=== PATIENT | female | born 1980 | race American Indian/Alaskan Native ===

== ENCOUNTER 2017-09-10 10:30 | Emergency (ER) | payer MEDICAID, MEDICARE, OTHER ==
[2017-09-10 10:33] VITALS: BMI 40.6
--- NOTE | 2017-09-10 11:17 | ED PDOC ---
Arrival/HPI - General Chief Complaint: Psychiatric Evaluation Time Seen by Provider: 09/10/17 10:46 Historian: EMS EM Caveat: Psychotic - History of Present Illness Narrative History of Present Illness (Text): 09/10/17 11:13 37 year old female, whose past medical history includes Anxiety, Bipolar Disorder, Depression, Personality Disorder, and Schizophrenia, presents to the emergency department by EMS found by [employer] acting bizarre at home. Patient is screaming "I don't know my name" repeatedly. Patient is not answering any questions. HPI and ROS limited due to patient being uncooperative and current mental state. Past Medical History - Provider Review Nursing Documentation Reviewed: Yes - Infectious Disease Hx of Infectious Diseases: None - Tetanus Immunization Tetanus Immunization: Unknown - Cardiac Hx Hypertension: No - Pulmonary Hx Tuberculosis: No - Neurological Hx Seizures: No - HEENT Hx HEENT Disorder: No Hx Cataracts: No Hx Deafness: No Hx Difficulty Chewing: No Hx Epistaxis: No Hx Glaucoma: No Hx Macular Degeneration: No - Renal Hx Renal Disorder: No Hx Kidney Stones: No - Endocrine/Metabolic Hx Endocrine Disorders: No - Hematological/Oncological Hx Cancer: No - Integumentary Hx Dermatological Disorder: No Hx Basal Cell Carcinoma: No Hx Ley: No Hx Cellulitis: No Hx Eczema: No Hx Melanoma: No Hx Psoriasis: No Hx Squamous Cell Carcinoma: No - Musculoskeletal/Rheumatological Hx Arthritis: No Hx Fractures: No Hx Osteoporosis: No Hx Rheumatoid Arthritis: No - Gastrointestinal Hx Crohn's Disease: No Hx Diverticulitis: No Hx Gall Bladder Disease: No Hx Gastritis: No Hx Pancreatitis: No - Genitourinary/Gynecological Hx Sexually Transmitted Diseases: No - Psychiatric Hx Anxiety: Yes Hx Bipolar Disorder: Yes Hx Depression: Yes Hx Schizophrenia: Yes Hx Substance Use: Yes - Surgical History Hx Appendectomy: No - Anesthesia Hx Anesthesia: Yes Hx Anesthesia Reactions: No - Suicidal Assessment Feels Threatened In Home Enviroment: No Family/Social History - Physician Review Nursing Documentation Reviewed: Yes Family/Social History: No Known Family HX Smoking Status: Heavy Smoker > 10 Cigarettes Daily Hx Alcohol Use: No Hx Substance Use: Yes Substance used: cocaine , marijuana Hx Substance Use Treatment: No Allergies/Home Meds Allergies/Adverse Reactions: Allergies paroxetine Allergy (Severe, Verified 09/10/17 10:39) ANGIOEDEMA haloperidol lactate [From Haldol] Adverse Reaction (Severe, Verified 09/10/17 10 :39) tremors lorazepam Adverse Reaction (Verified 09/10/17 10:39) Lock Jaw, Twist tongue Home Medications: Home Meds Medication Instructions Recorded Confirmed No Known Home Med 04/19/16 09/10/17 Review of Systems - Physician Review All systems were reviewed & negative as marked: Yes - Review of Systems Systems not reviewed;Unavailable: Psychotic Physical Exam - Physical Exam Narrative Physical Exam (Text): Constitutional: No acute distress. Head: Normocephalic. Atraumatic. Eyes: PERRL. ENT: Moist mucous membranes. Neck: Supple. Cardiovascular: Regular rate. Chest: No tenderness. Respiratory: Clear to auscultation bilaterally. GI: Soft. Nontender. Nondistended. Back: No CVA tenderness. Musculoskeletal: No tenderness or swelling of extremities. Skin: No rash. Neurologic: Alert, no focal deficit. Vital Signs Reviewed: Yes Vital Signs Temp Pulse Resp BP Pulse Ox 09/11/17 02:47 62 17 111/57 L 99 09/10/17 15:52 98.1 F 81 16 110/65 99 09/10/17 12:43 78 18 110/68 98 Medical Decision Making ED Course and Treatment: 09/10/17 11:13 Impression: 37 year old female [facility] bizarre at home. Patient is repeatedly stating "I don't know my name". Patient has an extensive psych history. Plan: -- EKG -- Labs -- Chest X-ray -- HCG, Qualitative Urine, Urinalysis -- Reassess and disposition Prior Visits: Notes and results from previous visits were reviewed. Progress Notes: PROCEDURE: Chest X-ray Dictator : Alfredo Cherry MD Report Date : 09/10/2017 11:58:04 IMPRESSION: No active disease. 09/10/17 13:56 EKG shows NSR at [address]/T wave changes. Interpreted by me. 09/10/17 14:31 Patient evaluated by PES who recommended [facility] [place] screening. Signed out to ED night team pending screening. - Lab Interpretations Lab Results: 09/10/17 11:05 09/10/17 11:05 Lab Results 09/10/17 11:05: Beta HCG, Quant < 2.39 09/10/17 11:05: Alcohol, Quantitative < 10 09/10/17 11:05: Salicylates < 1 L, Acetaminophen < 10.0 L 09/10/17 11:05: Sodium 140, Potassium 3.5 L, Chloride 104, Carbon Dioxide 24, Anion Gap 16, BUN 14, Creatinine 0.8, Est GFR ( Amer) > 60, Est GFR (Non- Af Amer) > 60, Random Glucose 73, Calcium 8.8, Total Bilirubin 0.8, AST 30, ALT 33, Alkaline Phosphatase 63, Total Protein 7.5, Albumin 4.4, Globulin 3.1, Albumin/Globulin Ratio 1.4 09/10/17 11:05: WBC 7.2 D, RBC 4.27, Hgb 13.0, Hct 37.5, MCV 87.8, MCH 30.4, MCHC 34.7, RDW 13.0, Plt Count 267, MPV 10.7, Gran % 67.7, Lymph % (Auto) 21.5 L , [place] % (Auto) 8.7 H, Eos % (Auto) 1.5, Baso % (Auto) 0.6, Gran # 4.89, Lymph # (Auto) 1.6, [place] # (Auto) 0.6, Eos # (Auto) 0.1, Baso # (Auto) 0.04 09/10/17 10:46: Urine Opiates Screen Negative, Urine Methadone Screen Negative, Ur Barbiturates Screen Negative, Ur Phencyclidine Scrn Negative, Ur Amphetamines Screen Negative, U Benzodiazepines Scrn Negative, U Oth Cocaine Metabols Positive H, U Cannabinoids Screen Negative 09/10/17 10:46: Urine Color Yellow, Urine Appearance Sl cloudy, Urine pH 6.0, Ur Specific [place] 1.025, Urine Protein Trace H, Urine Glucose (UA) Negative, Urine Ketones Trace H, Urine Blood Trace-lysed H, Urine Nitrate Negative, Urine Bilirubin Negative, Urine Urobilinogen 0.2, Ur Leukocyte Esterase Negative, Urine RBC 0 - 2, Urine WBC 0 - 2, Ur Epithelial Cells 6 - 8, Urine Bacteria Few , Urine HCG, Qual Negative I have reviewed the lab results: Yes - RAD Interpretation Radiology Orders: 09/10/17 10:46 CHEST PORTABLE [RAD] Stat - EKG Interpretation Interpreted by ED Physician: Yes Type: 12 lead EKG - Medication Orders Current Medication Orders: Discontinued Medications Ziprasidone (Geodon Inj) 20 mg IM STAT STA PRN Reason: Protocol Stop: 09/11/17 03:11 Last Admin: 09/11/17 03:23 Dose: 20 mg IM Administration Charges Document 09/11/17 03:23 ROSENDA (Rec: 09/11/17 03:23 JODagmar [facility] [place]-[id number]) Injection Site MAR Injection Site Right Deltoid Charges for Administration # of IM Administrations 1 - Scribe Statement The provider has reviewed the documentation as recorded by the James Toledo Provider Scribe Attestation: All medical record entries made by the Scribe were at my direction and personally dictated by me. I have reviewed the chart and agree that the record accurately reflects my personal performance of the history, physical exam, medical decision making, and the department course for this patient. I have also personally directed, reviewed, and agree with the discharge instructions and disposition. Disposition/Present on Arrival - Present on Arrival Any Indicators Present on Arrival: No History of DVT/PE: No History of Uncontrolled Diabetes: No Urinary Catheter: No History of Decub. Ulcer: No History Surgical Site Infection Following: None - Disposition Have Diagnosis and Disposition been Completed?: Yes Diagnosis: Schizoaffective disorder, bipolar type Disposition Time: 19:00 Condition: STABLE Forms: [employer] (Chinese)
[2017-09-10 11:20] LABS: BASO # 0.04 K/mm3 (0.0-2.0); BASO % 0.6 % (0.0-3.0); EOS # 0.1 (0.0-0.7); EOS % 1.5 % (1.5-5.0); GRAN # 4.89 (1.4-6.5); GRAN % 67.7 % (50.0-68.0); LYMPH # 1.6 (1.2-3.4); LYMPH % 21.5 % (22.0-35.0); MEAN CELL VOLUME 87.8 fl (80.0-105.0); MEAN CORPUSCULAR HEMOGLOBIN 30.4 pg (25.0-35.0); MEAN CORPUSCULAR HGB CONC 34.7 g/dl (31.0-37.0); MEAN PLATELET VOLUME 10.7 fl (7.0-11.0); MONO # 0.6 (0.1-0.6); MONO % 8.7 % (1.0-6.0); RBC 4.27 10^6/uL (3.5-6.1); WHITE BLOOD COUNT 7.2 10^3/ul (4.5-11.0)
[2017-09-10 11:28] LABS: ALB/GLOB RATIO 1.4 (1.1-1.8)
[2017-09-10 11:29] LABS: ACETAMINOPHEN < 10.0 ug/ml (10.0-20.0); SALICYLATE < 1 mg/dL (2.0-20.0)
[2017-09-10 11:33] LABS: ALBUMIN 4.4 g/dL (3.0-4.8); ALT/SGPT 33 U/L (7-56); AST/SGOT 30 U/L (14-36); BLOOD UREA NITROGEN 14 mg/dL (7-21); CALCIUM 8.8 mg/dL (8.4-10.5); GFR AFRICAN-AMERICAN > 60; GFR NON-AFRICAN AMERICAN > 60
[2017-09-10 11:58] LABS: BARBITURATES, UR NEGATIVE (NEGATIVE)
--- NOTE | 2017-09-10 11:59 | RAD ---
Date of service: 09/10/2017 HISTORY: psych COMPARISON: No prior. FINDINGS: LUNGS: No active pulmonary disease. PLEURA: No significant pleural effusion identified, no pneumothorax apparent. CARDIOVASCULAR: Normal. OSSEOUS STRUCTURES: No significant abnormalities. VISUALIZED UPPER ABDOMEN: Normal. OTHER FINDINGS: None. IMPRESSION: No active disease.
[2017-09-10 12:02] LABS: BENZODIAZEPINES, UR NEGATIVE (NEGATIVE); OPIATES, UR NEGATIVE (NEGATIVE); PHENCYCLIDINE, UR NEGATIVE (NEGATIVE)
[2017-09-10 12:07] LABS: URINE BILIRUBIN NEGATIVE (NEGATIVE); URINE BLOOD TRACE-LYSED (NEGATIVE); URINE GLUCOSE (UA) NEGATIVE (NEGATIVE); URINE LEUKOCYTE ESTERASE NEGATIVE Leu/uL (NEGATIVE); URINE PROTEIN TRACE mg/dL (<30 mg/dL); URINE UROBILINOGEN 0.2 E.U./dL (<1 E.U./dL)
[2017-09-10 12:10] LABS: URINE APPEARANCE SL CLOUDY (CLEAR); URINE COLOR YELLOW (YELLOW)
[2017-09-10 12:12] LABS: HCG,QUALITATIVE URINE NEGATIVE (NEGATIVE)
[2017-09-10 12:13] LABS: URINE BACTERIA FEW (NEG); URINE RBC 0 - 2 /hpf (0-2); URINE WBC 0 - 2 /hpf (0-6)
[2017-09-10 15:53] VITALS: TEMP 98.1; O2SAT 99
--- NOTE | 2017-09-10 18:32 | CARD ---
APPROVED REPORT Date of service: 09/10/2017 EKG Measurement Heart [id number] <Conclusion> Normal sinus rhythm Normal ECG
--- NOTE | 2017-09-10 20:28 | ED PDOC ---
Physical Exam Vital Signs Temp Pulse Resp BP Pulse Ox 09/11/17 02:47 62 17 111/57 L 99 09/10/17 15:52 98.1 F 81 16 110/65 99 09/10/17 12:43 78 18 110/68 98 Medical Decision Making ED Course and Treatment: 09/10/17 19:10 Case was endorsed to me from pending [facility] screening.37 year old female, whose past medical history includes Anxiety, Bipolar Disorder, Depression, Personality Disorder, and Schizophrenia presented for bizarre behaviour/acting out/uncooperative.Currently resting comfortably. 09/11/17 02:20 Pt seen by [facility] PES screeners and re-evaluated by PES screener Roberto. Pt meets criteria for involuntary admission at [facility]. 09/11/17 03:40 Pt in stable condition, transferred to [facility] via BLS. - Lab Interpretations Lab Results: 09/10/17 11:05 09/10/17 11:05 Lab Results 09/10/17 11:05: Beta HCG, Quant < 2.39 09/10/17 11:05: Alcohol, Quantitative < 10 09/10/17 11:05: Salicylates < 1 L, Acetaminophen < 10.0 L 09/10/17 11:05: Sodium 140, Potassium 3.5 L, Chloride 104, Carbon Dioxide 24, Anion Gap 16, BUN 14, Creatinine 0.8, Est GFR ( Amer) > 60, Est GFR (Non- Af Amer) > 60, Random Glucose 73, Calcium 8.8, Total Bilirubin 0.8, AST 30, ALT 33, Alkaline Phosphatase 63, Total Protein 7.5, Albumin 4.4, Globulin 3.1, Albumin/Globulin Ratio 1.4 09/10/17 11:05: WBC 7.2 D, RBC 4.27, Hgb 13.0, Hct 37.5, MCV 87.8, MCH 30.4, MCHC 34.7, RDW 13.0, Plt Count 267, MPV 10.7, Gran % 67.7, Lymph % (Auto) 21.5 L , [place] % (Auto) 8.7 H, Eos % (Auto) 1.5, Baso % (Auto) 0.6, Gran # 4.89, Lymph # (Auto) 1.6, [place] # (Auto) 0.6, Eos # (Auto) 0.1, Baso # (Auto) 0.04 09/10/17 10:46: Urine Opiates Screen Negative, Urine Methadone Screen Negative, Ur Barbiturates Screen Negative, Ur Phencyclidine Scrn Negative, Ur Amphetamines Screen Negative, U Benzodiazepines Scrn Negative, U Oth Cocaine Metabols Positive H, U Cannabinoids Screen Negative 09/10/17 10:46: Urine Color Yellow, Urine Appearance Sl cloudy, Urine pH 6.0, Ur Specific [place] 1.025, Urine Protein Trace H, Urine Glucose (UA) Negative, Urine Ketones Trace H, Urine Blood Trace-lysed H, Urine Nitrate Negative, Urine Bilirubin Negative, Urine Urobilinogen 0.2, Ur Leukocyte Esterase Negative, Urine RBC 0 - 2, Urine WBC 0 - 2, Ur Epithelial Cells 6 - 8, Urine Bacteria Few , Urine HCG, Qual Negative - RAD Interpretation Radiology Orders: 09/10/17 10:46 CHEST PORTABLE [RAD] Stat - Medication Orders Current Medication Orders: Discontinued Medications Ziprasidone (Geodon Inj) 20 mg IM STAT STA PRN Reason: Protocol Stop: 09/11/17 03:11 Last Admin: 09/11/17 03:23 Dose: 20 mg IM Administration Charges Document 09/11/17 03:23 JOL (Rec: 09/11/17 03:23 JOL [facility] [id number]) Injection Site MAR Injection Site Right Deltoid Charges for Administration # of IM Administrations 1 Disposition/Present on Arrival - Present on Arrival Any Indicators Present on Arrival: No History of DVT/PE: No History of Uncontrolled Diabetes: No Urinary Catheter: No History of Decub. Ulcer: No History Surgical Site Infection Following: None - Disposition Have Diagnosis and Disposition been Completed?: Yes Diagnosis: Schizoaffective disorder, bipolar type Disposition: Transfer [facility] Disposition Time: 03:11 Condition: STABLE Forms: [employer] (Armenian)
[2017-09-11 02:48] VITALS: BP 111/57; PULSE 62; RESP 17
== END 2017-09-11 03:40 | disposition short-term general hospital (02) ==
LOC: ED 10:30
DX: F25.0 Schizoaffective disorder, bipolar type (principal)
CPT/HCPCS: 71045; 80053; 80320; 80324; 80329; 80345; 80346; 80349; 80353; 80358; 80361; 81001; 83992; 84702; 84703; 85025; 90791; 93005; 96372; 99284; J3486